=== PATIENT | female | born 1955 | race Caucasian/White ===

== ENCOUNTER 2019-07-13 09:06 | Observation (INO) | payer OTHER ==
[~2019-07-13] VITALS: Ht 175.3 cm; Wt 78.1 kg
[2019-07-13 10:00] VITALS: BP 146/107
[2019-07-13] MEDS ORDERED: SODIUM CHLORIDE 0.9% 1,000 ML IV SCH ×2 (10:04→12:22)
[2019-07-13] MEDS ORDERED: ASPIRIN 325 MG TABLET EC ONE ×2 (10:09→12:23)
[2019-07-13] MEDS ORDERED: ASPI-496 PO (10:18)
[2019-07-13] MEDS ORDERED: ATOR40TA78 PO (10:19)
[2019-07-13] MEDS ORDERED: ISOS30TA8 PO (10:21)
[2019-07-13] MEDS ORDERED: LORA10TA41 PO (10:23)
[2019-07-13] MEDS ORDERED: METO25TA4 PO (10:24)
[2019-07-13 10:25] LABS: BASOPHILS # (AUTO) 0.04 x10^3/uL (0-0.1); BASOPHILS % (AUTO) 1 % (0-1); EOSINOPHILS # (AUTO) 0.22 x10^3/uL (0-0.4); EOSINOPHILS % (AUTO) 3 % (1-7); LYMPHOCYTES # (AUTO) 2.62 x10^3/uL (1-3.4); LYMPHOCYTES % (AUTO) 31 % (22-44); MD NO; MEAN CORPUSCULAR HEMOGLOBIN 32.7 pg (27.0-34.8); MEAN CORPUSCULAR HGB CONC 33.4 g/dL (32.4-35.8); MEAN CORPUSCULAR VOLUME 98.1 fL (80-100); MEAN PLATELET VOLUME 8.7 fL (7.4-10.4); MONOCYTES # (AUTO) 0.77 x10^3/uL (0.2-0.8); MONOCYTES % (AUTO) 9 % (2-9); NEUTROPHILS # (AUTO) 4.72 x10^3/uL (1.8-6.8); NEUTROPHILS % (AUTO) 56 % (42-75); PLATELET COUNT 233 x10^3/uL (130-400); RED BLOOD COUNT 4.07 x10^6/uL (3.82-5.3); RED CELL DISTRIBUTION WIDTH 13.4 % (9.6-15.2)
[2019-07-13] MEDS ORDERED: FLUT10.6 INH (10:25)
[2019-07-13] MEDS ORDERED: LACT1CAP11 PO (10:26)
[2019-07-13] MEDS ORDERED: ASPIRIN 325 MG TABLET EC PO ONE (10:30)
[2019-07-13 10:35] LABS: CALCIUM 8.9 mg/dL (8.5-10.1); CREATININE 0.71 mg/dL (0.55-1.02)
[2019-07-13 10:43] LABS: CHLORIDE 113 mmol/L (98-107)
[2019-07-13 10:44] LABS: ANION GAP 6 mmol/L (5-15)
[2019-07-13] MEDS ORDERED: TICAGRELOR 90 MG TABLET ONE (11:36)
[2019-07-13] MEDS ORDERED: FENTANYL PF 100 MCG/2ML ONE (11:36)
[2019-07-13] MEDS ORDERED: MIDAZOLAM 1 MG/ML, 5ML ONE (11:36)
[2019-07-13] MEDS ORDERED: VERAPAMIL 2.5 MG/ML, 2ML ONE (11:36)
[2019-07-13] MEDS ORDERED: BIVALIRUDIN 250 MG ONE ×2 (11:37→12:24)
[2019-07-13] MEDS ORDERED: HEPARIN 1,000 UNITS/ML, 10ML ONE (11:37)
[2019-07-13] MEDS ORDERED: LIDOCAINE-MPF 1%, 5ML ONE (11:37)
[2019-07-13] MEDS ORDERED: ISOSORBIDE MONONITRATE ER 30 MG TABLET PO PRN (12:30)
[2019-07-13] MEDS ORDERED: ACETAMINOPHEN 325 MG TABLET PO PRN (12:30)
[2019-07-13] MEDS ORDERED: ONDANSETRON 2MG/ML, 2ML IVPush PRN (12:30)
[2019-07-13] MEDS ORDERED: ZOLPIDEM 5MG TABLET PO PRN (12:30)
[2019-07-13 12:35] VITALS: BP 141/83
[2019-07-13] MEDS: BIVALIRUDIN 250 MG in SODIUM CHLORIDE 0.9% 50 ML IV SCH ×2 (13:10→13:27)
[2019-07-13 18:58] VITALS: BP 146/85
[2019-07-13] MEDS: BUDESONIDE 0.5 MG/2 ML INHA NPPB SCH (19:28)
[2019-07-13] MEDS ORDERED: ATORVASTATIN 40 MG TABLET PO SCH (21:00)
[2019-07-13] MEDS: TICAGRELOR 90 MG TABLET PO SCH (21:31)
[2019-07-13] MEDS: METOPROLOL TARTRATE 25 MG TAB PO SCH (21:31)
[2019-07-14 01:55] VITALS: BP 121/69
[2019-07-14 05:09] LABS: ANION GAP 6 mmol/L (5-15); CHLORIDE 113 mmol/L (98-107)
[2019-07-14 08:10] VITALS: BP 149/90
[2019-07-14] MEDS: TICAGRELOR 90 MG TABLET PO SCH (08:27)
[2019-07-14] MEDS: METOPROLOL TARTRATE 25 MG TAB PO SCH (08:27)
[2019-07-14] MEDS: BUDESONIDE 0.5 MG/2 ML INHA NPPB SCH (08:50)
[2019-07-14] MEDS ORDERED: LACTOBACILLUS CHEW TABLET PO SCH (09:00)
[2019-07-14] MEDS ORDERED: ASPIRIN 81 MG TABLET EC PO SCH ×2 (09:00)
[2019-07-14] MEDS ORDERED: LORATADINE 10 MG TABLET PO SCH (09:00)
[2019-07-14] MEDS ORDERED: TICA90TA PO (09:52)
[2019-07-14] MEDS ORDERED: ACET325T26 PO (09:52)
== END 2019-07-14 11:35 | disposition home or self-care (01) ==
LOC: CACL 09:06 → ORIP 12:22 → 5SO 12:52
PROVIDERS: ADMIT Internal Medicine Cardiovascular Disease; ATTEND Internal Medicine Cardiovascular Disease
DX: I25.110 Atherosclerotic heart disease of native coronary artery with unstable angina pectoris (principal); R07.9 Chest pain, unspecified; J44.9 Chronic obstructive pulmonary disease, unspecified; E78.5 Hyperlipidemia, unspecified; Z79.82 Long term (current) use of aspirin; Z87.891 Personal history of nicotine dependence; Z68.25 Body mass index [BMI] 25.0-25.9, adult; Z79.899 Other long term (current) drug therapy
CPT/HCPCS: 36415; 80048; 85025; 93005; 93458; 94640; 96365; 96366; 99156; 99157; C1725; C1769; C1874; C1887; C1894; C9600; G0378; J0583; J1644; J2250; J3010; J7626; Q9967

== ENCOUNTER → 2019-10-04 | Outpatient (CLI) | payer OTHER ==
[~2019-10-04] MED LIST: ACET325T26 PO; ASPI-496 PO; ATOR40TA78 PO; FLUT10.6 INH; ISOS30TA8 PO; LACT1CAP11 PO; LORA10TA41 PO; METO25TA4 PO; TICA90TA PO
== END | disposition home or self-care (01) ==
LOC: CVU 15:21
PROVIDERS: ATTEND Internal Medicine Cardiovascular Disease
DX: I35.1 Nonrheumatic aortic (valve) insufficiency (principal); I25.10 Atherosclerotic heart disease of native coronary artery without angina pectoris; R60.9 Edema, unspecified
CPT/HCPCS: 93306

== ENCOUNTER → 2019-10-18 | Outpatient (CLI) | payer OTHER | END | disposition home or self-care (01) | LOC: CVU 14:36 | PROVIDERS: ATTEND Internal Medicine Cardiovascular Disease | DX: I25.10 Atherosclerotic heart disease of native coronary artery without angina pectoris (principal); R60.9 Edema, unspecified; I25.2 Old myocardial infarction | CPT/HCPCS: 93970 ==

== ENCOUNTER 2019-12-23 08:49 | Day surgery (SDC) | payer BC ==
[~2019-12-23] VITALS: Ht 175.3 cm; Wt 81.6 kg
[2019-12-23] MEDS ORDERED: SODIUM CHLORIDE 0.9% 1,000 ML IV SCH ×2 (09:00→11:00)
[2019-12-23] MEDS ORDERED: NITR0.4T41 SL (09:21)
[2019-12-23 09:22] VITALS: BP 129/89
[2019-12-23] MEDS ORDERED: PLEASE ENTER HEIGHT AND WEIGHT MC SCH (09:30)
[2019-12-23 09:58] LABS: BASOPHILS % (AUTO) 1 % (0-1); EOSINOPHILS % (AUTO) 4 % (1-7); LYMPHOCYTES % (AUTO) 34 % (22-44); MEAN CORPUSCULAR HEMOGLOBIN 32.7 pg (27.0-34.8); MEAN CORPUSCULAR HGB CONC 32.8 g/dL (32.4-35.8); MEAN PLATELET VOLUME 7.9 fL (7.4-10.4); MONOCYTES % (AUTO) 9 % (2-9); NEUTROPHILS % (AUTO) 53 % (42-75); PLATELET COUNT 241 x10^3/uL (130-400); RED BLOOD COUNT 3.79 x10^6/uL (3.82-5.3); RED CELL DISTRIBUTION WIDTH 13.5 % (9.6-15.2)
[2019-12-23 09:59] LABS: ANION GAP 8 mmol/L (5-15); CALCIUM 8.7 mg/dL (8.5-10.1); CHLORIDE 113 mmol/L (98-107); CREATININE 0.72 mg/dL (0.55-1.02)
[2019-12-23 10:17] LABS: MD NO
[2019-12-23] MEDS ORDERED: MIDAZOLAM 1 MG/ML, 5ML ONE (10:19)
[2019-12-23] MEDS ORDERED: TICAGRELOR 90 MG TABLET ONE (10:19)
[2019-12-23] MEDS ORDERED: FENTANYL PF 100 MCG/2ML ONE (10:19)
[2019-12-23] MEDS ORDERED: LIDOCAINE-MPF 1%, 5ML ONE (10:19)
[2019-12-23] MEDS ORDERED: HEPARIN 1,000 UNITS/ML, 10ML ONE (10:19)
[2019-12-23] MEDS ORDERED: BIVALIRUDIN 250 MG ONE (10:19)
[2019-12-23] MEDS ORDERED: VERAPAMIL 2.5 MG/ML, 2ML ONE (10:19)
[2019-12-23] MEDS ORDERED: NITROGLYCERIN 30 MCG/ML, 20ML VIAL ONE (10:22)
[2019-12-23] MEDS ORDERED: CLOPIDOGREL 300 MG TABLET ONE (10:37)
[2019-12-23] MEDS ORDERED: CLOP75TA PO (11:02)
== END 2019-12-23 12:55 | disposition home or self-care (01) ==
LOC: CACL 08:49
PROVIDERS: ATTEND Internal Medicine Cardiovascular Disease
DX: I25.110 Atherosclerotic heart disease of native coronary artery with unstable angina pectoris (principal); I25.2 Old myocardial infarction; E78.5 Hyperlipidemia, unspecified; Z79.82 Long term (current) use of aspirin; Z79.899 Other long term (current) drug therapy; Z88.0 Allergy status to penicillin; Z88.2 Allergy status to sulfonamides; Z95.5 Presence of coronary angioplasty implant and graft
CPT/HCPCS: 36415; 80048; 85025; 93458; 99156; C1769; C1894; J1644; J2250; J3010; Q9967; J0583